=== PATIENT | female | born 1970 | race American Indian/Alaskan Native ===

== ENCOUNTER 2018-06-18 16:19 | Emergency (ER) | payer MEDICAID, OTHER ==
[2018-06-18 16:49] LABS: Basophils # (Auto) 0.1 K/mm3 (0.0-0.1); Basophils % (Auto) 1.3 % (0.0-1.8); Eosinophils # (Auto) 0.1 K/mm3 (0.0-0.4); Eosinophils % (Auto) 1.1 % (0.0-4.3); Hematocrit 25.2 % (30.3-42.9); Hemoglobin 8.2 gm/dl (10.1-14.3); Lymphocytes # (Auto) 1.8 K/mm3 (1.2-5.4); Lymphocytes % (Auto) 25.3 % (13.4-35.0); Mean Corpuscular HGB Conc 33 % (30-34); Mean Corpuscular Volume 76 fl (79-97); Monocytes # (Auto) 0.4 K/mm3 (0.0-0.8); Platelet Count 184 K/mm3 (140-440); Red Blood Count 3.32 M/mm3 (3.65-5.03)
[2018-06-18 16:52] LABS: Red Cell Distribution Width 20.8 % (13.2-15.2)
[2018-06-18 17:17] LABS: BUN/Creatinine Ratio 8; Blood Urea Nitrogen 10 mg/dL (7-17); Calcium 8.8 mg/dL (8.4-10.2); Hemolysis Index 0
[2018-06-18] MEDS ORDERED: NACL 0.9% 1000 ML 1,000 ML IV ONE ×2 (19:05→19:06)
[2018-06-18] MEDS ORDERED: ZOFRAN IV ONE (19:05)
[2018-06-18] MEDS ORDERED: DILAUDID IV ONE (19:06)
[2018-06-18] MEDS ORDERED: BENADRYL IV ONE (19:06)
--- NOTE | 2018-06-18 20:28 | XRay Report ---
FINAL REPORT EXAM: XR CHEST ROUTINE 2V HISTORY: chest pain TECHNIQUE: Two view chest PA and lateral PRIORS: None. FINDINGS: Cardiac and mediastinal contours are unremarkable. No focal pulmonary infiltrate is identified. No pleural fluid collection seen. Pulmonary vasculature is unremarkable. IMPRESSION: Negative two-view chest
--- NOTE | 2018-06-18 21:03 | Emergency Department Report ---
ED General Adult HPI - General Chief complaint: Chest Pain Stated complaint: CHEST PAIN/SOB/ABD PAIN Time Seen by Provider: 06/18/18 18:59 Source: patient Mode of arrival: Ambulatory Limitations: No Limitations - History of Present Illness Initial comments: Patient is a 47-year-old female who is presenting with generalized body aches. Patient states she's had pain for the past 2-3 days. Patient states she's been nauseous without vomiting or diarrhea. Patient has a mild nonproductive cough as well. Patient states she has some tightness in her chest especially when she coughs. She has mild shortness of breath. Patient has a history of sickle cell and feels as though the body aches are associated with her sickle cell disease. Severity scale (0 -10): 9 - Related Data Previous Rx's Medication Instructions Recorded Last Taken Type Benzonatate [Tessalon Perles] 100 mg PO Q8HR #10 capsule 06/18/18 Unknown Rx Ondansetron [Zofran Odt] 4 mg PO Q8HR PRN #10 tab.rapdis 06/18/18 Unknown Rx Oxycodone HCl/Acetaminophen 1 each PO Q6HR PRN #14 tablet 06/18/18 Unknown Rx [Percocet 7.5/325 mg] Allergies Allergy/AdvReac Type Severity Reaction Status Date / Time ketorolac [From Toradol] Allergy Unknown Verified 06/18/18 16:26 NSAIDS (Non-Steroidal Allergy Unknown Verified 06/18/18 16:26 Anti-Inflamma promethazine [From Phenergan] Allergy Unknown Verified 06/18/18 16:26 tramadol Allergy Unknown Verified 06/18/18 16:26 ED Review of Systems ROS: Stated complaint: CHEST PAIN/SOB/ABD PAIN Other details as noted in HPI Comment: All other systems reviewed and negative ED Past Medical Hx - Past Medical History Previous Medical History?: Yes Hx Renal Disease: Yes (Chronic Disease Stage II) Hx Sickle Cell Disease: Yes Additional medical history: Renal Cell Carcinoma - Surgical History Past Surgical History?: Yes Hx Cholecystectomy: Yes Additional Surgical History: left oophorectomy. left nephrectomy. tonsillectomy. Subtotal thyroidectomy. x 3 - Social History Smoking Status: Never Smoker Substance Use Type: Alcohol - Medications Home Medications: Home Medications Medication Instructions Recorded Confirmed Last Taken Type Benzonatate [Tessalon Perles] 100 mg PO Q8HR #10 capsule 06/18/18 Unknown Rx Ondansetron [Zofran Odt] 4 mg PO Q8HR PRN #10 tab.rapdis 06/18/18 Unknown Rx Oxycodone HCl/Acetaminophen 1 each PO Q6HR PRN #14 tablet 06/18/18 Unknown Rx [Percocet 7.5/325 mg] ED Physical Exam - General Limitations: No Limitations General appearance: alert, in no apparent distress - Head Head exam: Present: atraumatic, normocephalic - Eye Eye exam: Present: normal appearance - ENT ENT exam: Present: mucous membranes moist - Neck Neck exam: Present: normal inspection - Respiratory Respiratory exam: Present: normal lung sounds bilaterally. Absent: respiratory distress, wheezes, rales, rhonchi - Cardiovascular Cardiovascular Exam: Present: regular rate, normal rhythm. Absent: systolic murmur, diastolic murmur, rubs, gallop - GI/Abdominal GI/Abdominal exam: Present: soft, normal bowel sounds. Absent: distended, tenderness, guarding, rebound, rigid - Extremities Exam Extremities exam: Present: normal inspection - Back Exam Back exam: Present: normal inspection - Neurological Exam Neurological exam: Present: alert, oriented X3 - Psychiatric Psychiatric exam: Present: normal affect, normal mood - Skin Skin exam: Present: warm, dry, intact, normal color. Absent: rash ED Course Vital Signs 06/18/18 06/18/18 06/18/18 16:27 19:00 20:05 Temperature 97.9 F 97.9 F Pulse Rate 89 69 Respiratory 18 12 14 Rate Blood Pressure 133/75 Blood Pressure 137/91 [Left] O2 Sat by Pulse 100 100 Oximetry ED Medical Decision Making - Lab Data Result diagrams: 06/18/18 16:34 06/18/18 16:34 Lab Results 06/18/18 06/18/18 06/18/18 Range/Units 16:34 16:34 16:34 WBC 7.0 (4.5-11.0) K/mm3 RBC 3.32 L (3.65-5.03) M/mm3 Hgb 8.2 L (10.1-14.3) gm/dl Hct 25.2 L (30.3-42.9) % MCV 76 L (79-97) fl MCH 25 L (28-32) pg MCHC 33 (30-34) % RDW 20.8 H (13.2-15.2) % Plt Count 184 (140-440) K/mm3 Lymph % (Auto) 25.3 (13.4-35.0) % [place] % (Auto) 5.0 (0.0-7.3) % Eos % (Auto) 1.1 (0.0-4.3) % Baso % (Auto) 1.3 (0.0-1.8) % Lymph # 1.8 (1.2-5.4) K/mm3 [place] # 0.4 (0.0-0.8) K/mm3 Eos # 0.1 (0.0-0.4) K/mm3 Baso # 0.1 (0.0-0.1) K/mm3 Seg Neutrophils % 67.3 (40.0-70.0) % Seg Neutrophils # 4.7 (1.8-7.7) K/mm3 Sodium 136 L (137-145) mmol/L Potassium 4.1 (3.6-5.0) mmol/L Chloride 102.2 (98-107) mmol/L Carbon Dioxide 22 (22-30) mmol/L Anion Gap 16 mmol/L BUN 10 (7-17) mg/dL Creatinine 1.3 H (0.7-1.2) mg/dL Estimated GFR 44 ml/min BUN/Creatinine Ratio 8 % Glucose 113 H (65-100) mg/dL Calcium 8.8 (8.4-10.2) mg/dL Troponin T < 0.010 (0.00-0.029) ng/mL HCG, Qual Negative (Negative) 06/18/18 Range/Units 19:25 WBC (4.5-11.0) K/mm3 RBC (3.65-5.03) M/mm3 Hgb (10.1-14.3) gm/dl Hct (30.3-42.9) % MCV (79-97) fl MCH (28-32) pg MCHC (30-34) % RDW (13.2-15.2) % Plt Count (140-440) K/mm3 Lymph % (Auto) (13.4-35.0) % [place] % (Auto) (0.0-7.3) % Eos % (Auto) (0.0-4.3) % Baso % (Auto) (0.0-1.8) % Lymph # (1.2-5.4) K/mm3 [place] # (0.0-0.8) K/mm3 Eos # (0.0-0.4) K/mm3 Baso # (0.0-0.1) K/mm3 Seg Neutrophils % (40.0-70.0) % Seg Neutrophils # (1.8-7.7) K/mm3 Sodium (137-145) mmol/L Potassium (3.6-5.0) mmol/L Chloride (98-107) mmol/L Carbon Dioxide (22-30) mmol/L Anion Gap mmol/L BUN (7-17) mg/dL Creatinine (0.7-1.2) mg/dL Estimated GFR ml/min BUN/Creatinine Ratio % Glucose (65-100) mg/dL Calcium (8.4-10.2) mg/dL Troponin T < 0.010 (0.00-0.029) ng/mL HCG, Qual (Negative) - EKG Data -: EKG Interpreted by [place] EKG shows normal: sinus rhythm, axis, intervals, ST-T waves Rate: normal - EKG Data Interpretation: other (patient with Q waves in the septal leads.) - Medical Decision Making Patient with 2 negative troponins. Chest x-ray is within normal limits. Patient likely with sickle cell crisis and a upper respiratory infection. Patient be started on meds for symptomatic relief will be discharged home. Critical care attestation.: If time is entered above; I have spent that time in minutes in the direct care of this critically ill patient, excluding procedure time. ED Disposition Clinical Impression: Sickle cell anemia with crisis Upper respiratory infection Qualifiers: URI type: unspecified viral URI Qualified Code(s): J06.9 - Acute upper respiratory infection, unspecified Disposition: DC- TO HOME OR SELFCARE Is pt being admited?: No Does the pt Need Aspirin: No Condition: Stable Instructions: Sickle Cell Crisis (ED), Upper Respiratory Infection (ED) Referrals: PRIMARY CARE, [Primary Care Provider] - 3-5 Days Time of Disposition: 21:05
[2018-06-18 21:22] VITALS: BP 130/70
== END 2018-06-18 22:09 | disposition home or self-care (01) ==
LOC: ED 16:19
DX: D57.219 Sickle-cell/Hb-C disease with crisis, unspecified (principal); J06.9 Acute upper respiratory infection, unspecified; N18.2 Chronic kidney disease, stage 2 (mild); E89.0 Postprocedural hypothyroidism; Z88.5 Allergy status to narcotic agent; Z88.6 Allergy status to analgesic agent; Z90.49 Acquired absence of other specified parts of digestive tract; Z90.721 Acquired absence of ovaries, unilateral
CPT/HCPCS: 36415; 71046; 80048; 84484; 84703; 85025; 93005; 93010; 96374; 96375; 99284; J1170; J1200; J2405; J7030

== ENCOUNTER 2019-05-18 22:26 | Emergency (ER) | payer SELFPAY ==
[2019-05-19 01:02] LABS: Basophils % (Auto) 0.6 % (0.0-1.8); Eosinophils # (Auto) 0.2 K/mm3 (0.0-0.4); Eosinophils % (Auto) 2.9 % (0.0-4.3); Hematocrit 29.3 % (30.3-42.9); Hemoglobin 9.6 gm/dl (10.1-14.3); Lymphocytes # (Auto) 1.6 K/mm3 (1.2-5.4); Lymphocytes % (Auto) 22.5 % (13.4-35.0); Mean Corpuscular HGB Conc 33 % (30-34); Mean Corpuscular Volume 71 fl (79-97); Monocytes # (Auto) 0.4 K/mm3 (0.0-0.8); Monocytes % (Auto) 5.8 % (0.0-7.3); Platelet Count 242 K/mm3 (140-440); Red Blood Count 4.11 M/mm3 (3.65-5.03)
[2019-05-19 01:16] LABS: Red Cell Distribution Width 21.3 % (13.2-15.2)
[2019-05-19] MEDS ORDERED: ACETAMINOPHEN 500 MG TAB PO ONE (05:01)
--- NOTE | 2019-05-19 05:04 | Emergency Department Report ---
ED General Adult HPI - General Chief complaint: Sickle Cell Crisis Stated complaint: SICKLE CELL CRISIS Time Seen by Provider: 05/19/19 04:22 Source: patient Mode of arrival: Ambulatory Limitations: No Limitations - History of Present Illness Initial comments: Generalized pain feels like past Sickle cell crisis. -: Gradual, days(s) Radiation: non-radiation Severity scale (0 -10): 2 Quality: aching Consistency: intermittent Improves with: none Worsens with: none Associated Symptoms: denies: confusion, chest pain, cough, diaphoresis, fever/chills, headaches, loss of appetite, malaise, nausea/vomiting, rash, seizure, shortness of breath, syncope, weakness - Related Data Previous Rx's Medication Instructions Recorded Last Taken Type Benzonatate [Tessalon Perles] 100 mg PO Q8HR #10 capsule 06/18/18 Unknown Rx Ondansetron [Zofran Odt] 4 mg PO Q8HR PRN #10 tab.rapdis 06/18/18 Unknown Rx Oxycodone HCl/Acetaminophen 1 each PO Q6HR PRN #14 tablet 06/18/18 Unknown Rx [Percocet 7.5/325 mg] Allergies Allergy/AdvReac Type Severity Reaction Status Date / Time ketorolac [From Toradol] Allergy Unknown Verified 06/18/18 16:26 NSAIDS (Non-Steroidal Allergy Unknown Verified 06/18/18 16:26 Anti-Inflamma promethazine [From Phenergan] Allergy Unknown Verified 06/18/18 16:26 tramadol Allergy Unknown Verified 06/18/18 16:26 quetiapine [From Seroquel] AdvReac Unknown Verified 05/18/19 22:28 ED Review of Systems ROS: Stated complaint: SICKLE CELL CRISIS Other details as noted in HPI Other: GENERAL: No weight change, fatigue, fever, chills, or night sweats SKIN: No changes in skin or hair, no itching, no rashes, no jaundice HEAD: No trauma EYES: No blurriness, tearing, itching, acute visual loss, conjunctival discoloration, or scleral icterus EARS: No hearing loss, tinnitus, vertigo, or earache NOSE: No rhinorrhea, stuffiness, sneezing, itching, or epistaxis MOUTH: No bleeding gums, hoarseness, sore throat, or swelling CARDIAC: No new murmur, chest pain, palpitations, dyspnea on exertion, orthopnea, PND, or edema RESPIRATORY: No shortness of breath, wheeze, cough, sputum production, hemoptysis GI: No abdominal pain, nausea, vomiting, dysphagia, diarrhea, constipation, hematemesis, melena, hematochezia URINARY: No frequency, urgency, polyuria, dysuria, hematuria, or incontinence MUSCULOSKELETAL: Generalized pain feels like past Sickle cell crisis. No muscle weakness, joint stiffness, decrease in range of motion, redness, swelling NEUROLOGIC: No headache, syncope, loss of sensation, numbness, tingling, tremors, weakness, paralysis, seizures HEMATOLOGIC: No anemia, easy bruising, bleeding, petechiae, or purpura ENDOCRINE: No hot or cold intolerance, sweating, polyuria, polydipsia or, polyphagia no thyroid problems PSYCHIATRIC: No change in mood, no anxiety, no depression ED Past Medical Hx - Past Medical History Previous Medical History?: Yes Hx Renal Disease: Yes (Chronic Disease Stage II) Hx Sickle Cell Disease: Yes Additional medical history: Renal Cell Carcinoma - Surgical History Past Surgical History?: Yes Hx Cholecystectomy: Yes Additional Surgical History: left oophorectomy. left nephrectomy. tonsillec norma. Subtotal thyroidectomy. x 3 - Social History Smoking Status: Never Smoker Substance Use Type: None - Medications Home Medications: Home Medications Medication Instructions Recorded Confirmed Last Taken Type Benzonatate [Tessalon Perles] 100 mg PO Q8HR #10 capsule 06/18/18 Unknown Rx Ondansetron [Zofran Odt] 4 mg PO Q8HR PRN #10 tab.rapdis 06/18/18 Unknown Rx Oxycodone HCl/Acetaminophen 1 each PO Q6HR PRN #14 tablet 06/18/18 Unknown Rx [Percocet 7.5/325 mg] ED Physical Exam - General Limitations: No Limitations - Other Other exam information: GENERAL: Patient in no acute distress HEAD: Normocephalic, atraumatic EYES: PERRLA, EOM intact, no scleral icterus, no conjunctival hemorrhage, visual truong and acuity wnl NOSE: No tenderness, discharge, sinus tenderness MOUTH: No erythema, bleeding, exudate HEART: Regular rate and rhythm, no murmur, S1-S2 are auscultated, no edema, pulses are symmetric LUNGS: No respiratory distress. Bilateral breath sounds, No tachypnea, No retractions, No wheezing, rales, rhonchi ABDOMEN: Normal bowel sounds, abdomen soft, no tenderness, no rebound, no guarding, no distention, no masses, no CVA tenderness MUSCULOSKELETAL: Normal joint range of motion, no redness, no swelling, no tenderness NEUROLOGIC: GCS 15, Alert and Oriented x3, Cranial nerves intact, normal sensation, normal strength, no cerebellar deficit, NIHSS 0 SKIN: Skin is warm and dry, no wounds, no rashes ED Course Vital Signs 05/18/19 05/19/19 22:30 04:43 Temperature 98.1 F Pulse Rate 88 70 Respiratory 16 18 Rate Blood Pressure 153/85 Blood Pressure 175/69 [Left] O2 Sat by Pulse 98 100 Oximetry ED Medical Decision Making - Lab Data Result diagrams: 05/19/19 00:37 Laboratory Results - last 24 hr 05/19/19 00:37 WBC 7.3 RBC 4.11 Hgb 9.6 L Hct 29.3 L MCV 71 L MCH 24 L MCHC 33 RDW 21.3 H Plt Count 242 Lymph % (Auto) 22.5 [place] % (Auto) 5.8 Eos % (Auto) 2.9 Baso % (Auto) 0.6 Lymph # 1.6 [place] # 0.4 Eos # 0.2 Baso # 0.0 Seg Neutrophils % 68.2 Seg Neutrophils # 5.0 Percent Retic 2.14 - Medical Decision Making Patient comfortable. Plan discharge with outpatient follow up. Return if any worsening. Critical care attestation.: If time is entered above; I have spent that time in minutes in the direct care of this critically ill patient, excluding procedure time. ED Disposition Clinical Impression: Sickle cell anemia with pain Disposition: DC- TO HOME OR SELFCARE Is pt being admited?: No Condition: Stable Instructions: Sickle Cell Crisis (ED) Referrals: RAJESH DELGADILLO MD [Primary Care Provider] - 2-3 Days [facility] [Outside] - 2-3 Days Time of Disposition: 05:02
[2019-05-19 05:35] VITALS: BP 148/70
== END 2019-05-19 07:12 | disposition home or self-care (01) ==
LOC: ED 22:26
DX: D57.00 Hb-SS disease with crisis, unspecified (principal); Z90.49 Acquired absence of other specified parts of digestive tract; Z90.89 Acquired absence of other organs; Z79.899 Other long term (current) drug therapy; Z88.6 Allergy status to analgesic agent
CPT/HCPCS: 36415; 85025; 85045

== ENCOUNTER 2019-07-02 03:48 | Emergency (ER) | payer SELFPAY ==
[2019-07-02 08:18] LABS: Basophils # (Auto) 0.1 K/mm3 (0.0-0.1); Eosinophils # (Auto) 0.1 K/mm3 (0.0-0.4); Eosinophils % (Auto) 2.3 % (0.0-4.3); Hematocrit 28.2 % (30.3-42.9); Hemoglobin 9.4 gm/dl (10.1-14.3); Lymphocytes # (Auto) 1.5 K/mm3 (1.2-5.4); Mean Corpuscular HGB Conc 34 % (30-34); Mean Corpuscular Volume 74 fl (79-97); Monocytes # (Auto) 0.3 K/mm3 (0.0-0.8); Platelet Count 214 K/mm3 (140-440); Red Blood Count 3.79 M/mm3 (3.65-5.03)
[2019-07-02 08:22] LABS: Red Cell Distribution Width 21.8 % (13.2-15.2)
[2019-07-02] MEDS ORDERED: diphenhydrAMINE 50 MG/ML VIAL IV ONE ×2 (08:34→11:12)
[2019-07-02] MEDS ORDERED: HYDROmorphone 1 MG/1 ML INJ IV ONE ×2 (08:34→10:31)
[2019-07-02] MEDS ORDERED: SODIUM CHLORIDE 0.9% 1000 ML 1,000 ML IV ONE (08:34)
--- NOTE | 2019-07-02 08:37 | Emergency Department Report ---
ED General Adult HPI - General Chief complaint: Sickle Cell Crisis Stated complaint: SICKLE CELL PAIN,CHEST PAIN,SOB,ABDOMINAL PAIN Time Seen by Provider: 07/02/19 08:27 Source: patient Mode of arrival: Ambulatory Limitations: No Limitations - History of Present Illness Initial comments: 48-year-old female with history of sickle cell disease (HbSS), atrial fibrillation, hypothyroidism s/p thyroid resection, renal cell carcinoma s/p kidney resection, chronic kidney disease, presents to ED with possible sickle cell pain crisis. Patient presents today complaining of chest pain, shortness breath, palpitations, pain to the bilateral shoulders and hips, and lower back. Patient states this is consistent with her usual pain crises. Patient reports her Afib is paroxysmal and that her physicians did not want to place her on any blood thinners. States last transfusion was approx 5 mos ago. -: days(s) Location: chest, back, left, right, upper extremity, lower extremity Severity scale (0 -10): 9 Quality: aching Consistency: constant Improves with: none Worsens with: none Associated Symptoms: chest pain, shortness of breath. denies: cough, fever/ chills, nausea/vomiting - Related Data Previous Rx's Medication Instructions Recorded Last Taken Type Benzonatate [Tessalon Perles] 100 mg PO Q8HR #10 capsule 06/18/18 Unknown Rx Ondansetron [Zofran Odt] 4 mg PO Q8HR PRN #10 tab.rapdis 06/18/18 Unknown Rx Oxycodone HCl/Acetaminophen 1 each PO Q6HR PRN #14 tablet 06/18/18 Unknown Rx [Percocet 7.5/325 mg] oxyCODONE /ACETAMINOPHEN [Percocet 1 tab PO Q6HR PRN #10 tablet 07/02/19 Unknown Rx 5/325] Allergies Allergy/AdvReac Type Severity Reaction Status Date / Time ketorolac [From Toradol] Allergy Unknown Verified 06/18/18 16:26 NSAIDS (Non-Steroidal Allergy Unknown Verified 06/18/18 16:26 Anti-Inflamma promethazine [From Phenergan] Allergy Unknown Verified 06/18/18 16:26 tramadol Allergy Unknown Verified 06/18/18 16:26 quetiapine [From Seroquel] AdvReac Unknown Verified 05/18/19 22:28 ED Review of Systems ROS: Stated complaint: SICKLE CELL PAIN,CHEST PAIN,SOB,ABDOMINAL PAIN Other details as noted in HPI Comment: All other systems reviewed and negative Constitutional: denies: chills, fever Respiratory: shortness of breath Cardiovascular: chest pain, palpitations Musculoskeletal: as per HPI ED Past Medical Hx - Past Medical History Previous Medical History?: Yes Hx Renal Disease: Yes (Chronic Disease Stage II) Hx Sickle Cell Disease: Yes Additional medical history: Renal Cell Carcinoma - Surgical History Past Surgical History?: Yes Hx Cholecystectomy: Yes Additional Surgical History: left oophorectomy. left nephrectomy. tonsillectomy. Subtotal thyroidectomy. x 3 - Social History Smoking Status: Never Smoker Substance Use Type: Alcohol - Medications Home Medications: Home Medications Medication Instructions Recorded Confirmed Last Taken Type Benzonatate [Tessalon Perles] 100 mg PO Q8HR #10 capsule 06/18/18 Unknown Rx Ondansetron [Zofran Odt] 4 mg PO Q8HR PRN #10 tab.rapdis 06/18/18 Unknown Rx Oxycodone HCl/Acetaminophen 1 each PO Q6HR PRN #14 tablet 06/18/18 Unknown Rx [Percocet 7.5/325 mg] oxyCODONE /ACETAMINOPHEN [Percocet 1 tab PO Q6HR PRN #10 tablet 07/02/19 Unknown Rx 5/325] ED Physical Exam - General Limitations: No Limitations General appearance: alert, in no apparent distress - Head Head exam: Present: atraumatic, normocephalic - Eye Eye exam: Present: normal appearance, EOMI - ENT ENT exam: Present: mucous membranes moist - Neck Neck exam: Present: normal inspection - Respiratory Respiratory exam: Present: normal lung sounds bilaterally. Absent: respiratory distress - Cardiovascular Cardiovascular Exam: Present: normal rhythm, irregular rhythm - GI/Abdominal GI/Abdominal exam: Present: soft. Absent: distended, tenderness - Extremities Exam Extremities exam: Present: normal inspection, pedal edema. Absent: calf tenderness - Neurological Exam Neurological exam: Present: alert, oriented X3 - Psychiatric Psychiatric exam: Present: normal affect, normal mood - Skin Skin exam: Present: warm, dry, intact, normal color ED Course Vital Signs 07/02/19 07/02/19 07/02/19 03:59 08:32 09:46 Temperature 97.8 F Pulse Rate 79 66 68 Respiratory 18 18 17 Rate Blood Pressure 142/86 Blood Pressure 144/76 156/78 [Right] O2 Sat by Pulse 100 99 98 Oximetry 07/02/19 11:07 Temperature Pulse Rate 75 Respiratory Rate Blood Pressure Blood Pressure 110/43 [Right] O2 Sat by Pulse Oximetry ED Medical Decision Making - Lab Data Result diagrams: 07/02/19 07:49 07/02/19 07:49 - EKG Data -: EKG Interpreted by Vt EKG shows normal: axis, QRS complexes Rate: normal - EKG Data Interpretation: other (Afib, lateral T wave inversions) - Radiology Data Radiology results: report reviewed, image reviewed - Medical Decision Making 48 yo F presents to ED reporting sickle cell crisis. Chest pain and SOB also reported. Pt afebrile, WBCs normal, CXR unremarkable. O2 sats normal, pt in no resp distress. EKG shows Afib w/ no ST changes, troponin and D-dimer negative. Pt given pain dilaudid and benadryl x 2 doses, IV fluids. She is feeling much better at this time. Hemoglobin appears to be stable. Prescriptions given. Outpt f/u advised. Return precautions given. - Differential Diagnosis sickle cell crisis, acute chest, ACS, PE Critical care attestation.: If time is entered above; I have spent that time in minutes in the direct care of this critically ill patient, excluding procedure time. ED Disposition Clinical Impression: Sickle cell anemia with pain, Chest pain Disposition: TO HOME OR SELFCARE Is pt being admited?: No Condition: Stable Instructions: Chest Pain (ED), Sickle Cell Crisis (ED) Prescriptions: oxyCODONE /ACETAMINOPHEN [Percocet 5/325] 1 tab PO Q6HR PRN #10 tablet PRN Reason: Pain Referrals: PRIMARY CARE, [Primary Care Provider] - 3-5 Days BYRAN VARGAS DO [Staff Physician] - 3-5 Days [facility] [Provider Group] - 3-5 Days Time of Disposition: 10:44
--- NOTE | 2019-07-02 09:23 | XRay Report ---
CHEST 1 VIEW 8:38 AM INDICATION / CLINICAL INFORMATION: Chest pain. COMPARISON: 06/18/2018. FINDINGS: SUPPORT DEVICES: None. HEART / MEDIASTINUM: The heart size and pulmonary vasculature are normal. The aorta is normal in [place]. LUNGS / PLEURA: There is minimal linear parenchymal opacity in the left lower lung laterally, new sin ce the prior exam. The lungs are otherwise clear. No pneumothorax. ADDITIONAL FINDINGS: No significant additional findings. IMPRESSION: Minimal subsegmental atelectasis in the left lower lung laterally. Signer Name: Greg Colon MD Signed: 07/02/2019 9:18 AM Workstation Name: [id number]
[2019-07-02 09:41] LABS: INR 0.98 (0.87-1.13); Partial Thromboplastin Time 33.7 Sec. (24.2-36.6)
[2019-07-02 11:08] VITALS: BP 110/43
== END 2019-07-02 11:45 | disposition home or self-care (01) ==
LOC: ED 03:48
DX: D57.00 Hb-SS disease with crisis, unspecified (principal); Z90.49 Acquired absence of other specified parts of digestive tract; Z90.89 Acquired absence of other organs; Z79.899 Other long term (current) drug therapy; Z88.8 Allergy status to other drugs, medicaments and biological substances
CPT/HCPCS: 36415; 71045; 80048; 84484; 84703; 85025; 85045; 85379; 85610; 85730; 93005; 93010; 96374; 96375; 96376; 99284; J1170; J1200; J7030

== ENCOUNTER 2019-11-13 19:16 | Emergency (ER) | payer MEDICAID ==
--- NOTE | 2019-11-13 20:01 | Event Note ---
ED Screening Note Date of service: 11/13/19 Time: 19:59 ED Screening Note: This 49-year-old female with a history of sickle cell, kidney Dz, presents for pain in abd, hips and legs, cc of tightnes in chest This initial assessment/diagnostic orders/clinical plan/treatment(s) is/are subject to change based on patients health status, clinical progression and re- assessment by fellow clinical providers in the ED. Further treatment and workup at subsequent clinical providers discretion. Patient/guardian urged not to elope from the ED as their condition may be serious if not clinically assessed and managed. Initial orders include: cbc, retic count cxr?
[2019-11-13 20:40] LABS: Basophils # (Auto) 0.1 K/mm3 (0.0-0.1); Basophils % (Auto) 0.9 % (0.0-1.8); Eosinophils # (Auto) 0.1 K/mm3 (0.0-0.4); Eosinophils % (Auto) 1.9 % (0.0-4.3); Hematocrit 26.4 % (30.3-42.9); Hemoglobin 8.5 gm/dl (10.1-14.3); Lymphocytes # (Auto) 1.2 K/mm3 (1.2-5.4); Lymphocytes % (Auto) 20.1 % (13.4-35.0); Mean Corpuscular HGB Conc 32 % (30-34); Mean Corpuscular Volume 71 fl (79-97); Monocytes # (Auto) 0.4 K/mm3 (0.0-0.8); Monocytes % (Auto) 7.4 % (0.0-7.3); Platelet Count 259 K/mm3 (140-440); Red Cell Distribution Width 21.4 % (13.2-15.2)
--- NOTE | 2019-11-13 21:43 | Emergency Department Report ---
ED General Adult HPI - General Chief complaint: Sickle Cell Crisis Stated complaint: SICKLE CELL PAIN Time Seen by Provider: 11/13/19 21:25 Source: patient Mode of arrival: Ambulatory Limitations: No Limitations - History of Present Illness Initial comments: Ms. Krishna is a 49-year-old female with history of sickle cell disease, chronic kidney disease, renal cell carcinoma who presents with dull pain and chest pain in extremities. 10 out of 10. She treated pain with Tylenol. She denies fever. Denies cough. Denies shortness of breath. 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 -: Gradual, days(s) (1) Location: chest, left, right, upper extremity, lower extremity Severity scale (0 -10): 8 Quality: aching Consistency: constant Improves with: none Worsens with: none Associated Symptoms: denies other symptoms - Related Data Previous Rx's Medication Instructions Recorded Last Taken Type Benzonatate [Tessalon Perles] 100 mg PO Q8HR #10 capsule 06/18/18 Unknown Rx Ondansetron [Zofran Odt] 4 mg PO Q8HR PRN #10 tab.rapdis 06/18/18 Unknown Rx Oxycodone HCl/Acetaminophen 1 each PO Q6HR PRN #14 tablet 06/18/18 Unknown Rx [Percocet 7.5/325 mg] oxyCODONE /ACETAMINOPHEN [Percocet 1 tab PO Q6HR PRN #10 tablet 07/02/19 Unknown Rx 5/325] Allergies Allergy/AdvReac Type Severity Reaction Status Date / Time ketorolac [From Toradol] Allergy Unknown Verified 06/18/18 16:26 NSAIDS (Non-Steroidal Allergy Unknown Verified 06/18/18 16:26 Anti-Inflamma promethazine [From Phenergan] Allergy Unknown Verified 06/18/18 16:26 tramadol Allergy Unknown Verified 06/18/18 16:26 quetiapine [From Seroquel] AdvReac Unknown Verified 05/18/19 22:28 iv contrast Allergy Unknown Uncoded 11/13/19 19:55 ED Review of Systems ROS: Stated complaint: SICKLE CELL PAIN Other details as noted in HPI Comment: All other systems reviewed and negative Constitutional: denies: fever, malaise Respiratory: denies: cough, shortness of breath Cardiovascular: chest pain Gastrointestinal: denies: abdominal pain, nausea, vomiting ED Past Medical Hx - Past Medical History Previous Medical History?: Yes Hx Renal Disease: Yes (Chronic Disease Stage II) Hx Sickle Cell Disease: Yes Additional medical history: Renal Cell Carcinoma, a-fib - Surgical History Past Surgical History?: Yes Hx Cholecystectomy: Yes Additional Surgical History: left oophorectomy. left nephrectomy. tonsillectomy. Subtotal thyroidectomy. x 3 - Social History Smoking Status: Never Smoker Substance Use Type: Alcohol - Medications Home Medications: Home Medications Medication Instructions Recorded Confirmed Last Taken Type Benzonatate [Tessalon Perles] 100 mg PO Q8HR #10 capsule 06/18/18 Unknown Rx Ondansetron [Zofran Odt] 4 mg PO Q8HR PRN #10 tab.rapdis 06/18/18 Unknown Rx Oxycodone HCl/Acetaminophen 1 each PO Q6HR PRN #14 tablet 06/18/18 Unknown Rx [Percocet 7.5/325 mg] oxyCODONE /ACETAMINOPHEN [Percocet 1 tab PO Q6HR PRN #10 tablet 07/02/19 Unknown Rx 5/325] ED Physical Exam - General Limitations: No Limitations General appearance: alert, in no apparent distress - Head Head exam: Present: atraumatic, normocephalic - Eye Eye exam: Present: scleral icterus - ENT ENT exam: Present: mucous membranes moist - Neck Neck exam: Present: normal inspection, full ROM - Respiratory Respiratory exam: Present: normal lung sounds bilaterally. Absent: respiratory distress, wheezes, rales, rhonchi - Cardiovascular Cardiovascular Exam: Present: regular rate, normal rhythm, normal heart sounds. Absent: systolic murmur, diastolic murmur, rubs, gallop - GI/Abdominal GI/Abdominal exam: Present: soft, normal bowel sounds. Absent: distended, tenderness, guarding, rebound - Extremities Exam Extremities exam: Present: normal inspection - Back Exam Back exam: Present: normal inspection - Neurological Exam Neurological exam: Present: alert, oriented X3 - Psychiatric Psychiatric exam: Present: normal affect, normal mood - Skin Skin exam: Present: warm, dry, intact, normal color. Absent: rash ED Course Vital Signs 11/13/19 11/13/19 11/13/19 19:57 21:43 21:49 Temperature 98.8 F Pulse Rate 89 Respiratory 18 18 Rate Blood Pressure 151/76 127/83 O2 Sat by Pulse 100 Oximetry 11/13/19 11/13/19 22:00 22:46 Temperature Pulse Rate 88 88 Respiratory 19 18 Rate Blood Pressure 129/83 129/83 O2 Sat by Pulse 96 97 Oximetry ED Medical Decision Making - Lab Data Result diagrams: 11/13/19 20:20 Laboratory Results - last 24 hr 11/13/19 20:20 WBC 5.9 RBC 3.70 Hgb 8.5 L Hct 26.4 L MCV 71 L MCH 23 L MCHC 32 RDW 21.4 H Plt Count 259 Lymph % (Auto) 20.1 [place] % (Auto) 7.4 H Eos % (Auto) 1.9 Baso % (Auto) 0.9 Lymph # 1.2 [place] # 0.4 Eos # 0.1 Baso # 0.1 Seg Neutrophils % 69.7 Seg Neutrophils # 4.1 Percent Retic 1.82 - EKG Data 11/13/19 21:43 EKG obtained 2010 Normal sinus rhythm rate 85 bpm normal axis normal intervals no ST elevation normal T wave pattern - Radiology Data Radiology results: report reviewed Chest radiograph: No acute findings - Medical Decision Making Is a 49-year-old female who presents with generalized pain including chest pain. Diagnosis sickle cell disease crisis. I do not suspect pulmonary embolism, acute chest syndrome. I do not suspect ACS. She received adequate pain control with multiple doses of IV analgesics. Discharge with referral to outpatient medicine physician. Previously prescription for 15 tablets of Percocet. Critical care attestation.: If time is entered above; I have spent that time in minutes in the direct care of this critically ill patient, excluding procedure time. ED Disposition Clinical Impression: Sickle cell disease with crisis Disposition: DC-01 TO HOME OR SELFCARE Is pt being admited?: No Does the pt Need Aspirin: No Condition: Stable Referrals: LUCITA DAVID MD [Staff Physician] - 3-5 Days
[2019-11-13] MEDS ORDERED: HYDROmorphone 1 MG/1 ML INJ IV ONE ×2 (21:44→22:58)
[2019-11-13] MEDS ORDERED: ONDANSETRON 4 MG/2 ML INJ IV ONE (21:44)
[2019-11-13] MEDS ORDERED: diphenhydrAMINE 50 MG/ML VIAL IV ONE (22:57)
[2019-11-13] MEDS ORDERED: diphenhydrAMINE 50 MG/ML VIAL ONE (23:00)
--- NOTE | 2019-11-13 23:19 | XRay Report ---
CHEST 1 VIEW 11/13/2019 9:50 PM INDICATION / CLINICAL INFORMATION: Dyspnea, chest tightness, sickle cell pain. COMPARISON: One view of the chest from 07/02/2019. FINDINGS: SUPPORT DEVICES: None. HEART / MEDIASTINUM: No significant abnormality. LUNGS / PLEURA: No significant pulmonary or pleural abnormality. No pneumothorax. ADDITIONAL FINDINGS: No significant additional findings. IMPRESSION: 1. No acute abnormality of the chest. Signer Name: Kolton Nelson MD Signed: 11/13/2019 11:15 PM Workstation Name: [id number]
[2019-11-13] MEDS ORDERED: oxyCODONE /ACETAMINOPHEN 5-325MG TAB ONE (23:54)
[2019-11-14 13:48] VITALS: BP 132/68
== END 2019-11-13 23:58 | disposition home or self-care (01) ==
LOC: ED 19:16
DX: D57.00 Hb-SS disease with crisis, unspecified (principal); Z90.89 Acquired absence of other organs; Z98.890 Other specified postprocedural states; Z90.49 Acquired absence of other specified parts of digestive tract; Z88.8 Allergy status to other drugs, medicaments and biological substances
CPT/HCPCS: 36415; 71045; 85025; 85045; 93005; 96374; 96375; 96376; 99284; J1170; J1200; J2405